=== PATIENT | male | born 1955 | race Caucasian/White ===

== ENCOUNTER → 2018-04-03 08:37 | Outpatient (CLI) | payer OTHER, SELFPAY ==
[2018-04-03 09:16] LABS: Add Manual Diff / Slide Review NO; Basophils Percent Auto 1.1 % (0-2); Eosinophils Percent Auto 3.9 % (2-4); Hematocrit 46.9 % (41-53); Hemoglobin 16.5 g/dL (13.5-17.5); Lymphocytes Percent Auto 55.7 % (25-40); Mean Corpuscular HGB Conc 35.3 % (30-36); Mean Corpuscular Hemoglobin 32.1 PG (26-34); Monocytes Percent Auto 8.7 % (3-14); Neutrophils Absolute Auto 2000 /uL (3000-5900); Neutrophils Percent Auto 30.6 % (50-75); Platelet Count 284 X10^3/uL (150-400); Red Blood Cell Count 5.16 X10^6/uL (4.5-5.9); Red Cell Distribution Width 13.2 % (11.6-14.8); White Blood Cell Count 6.4 X10^3/uL (4.5-11.0)
[2018-04-03 09:19] LABS: Alanine Aminotransferase 39 IU/L (21-72); Albumin 4.7 g/dL (3.5-5.0); Albumin Globulin Ratio 1.6 (1.0-2.8); Alkaline Phosphatase 74 U/L (38-126); Aspartate Aminotransferase 29 IU/L (17-59); BUN Creatinine Ratio 18.8 (6-22); Bilirubin Total 0.7 mg/dL (0.2-1.3); Blood Urea Nitrogen 15 mg/dL (9-20); Calcium 10.1 mg/dL (8.4-10.2); Carbon Dioxide 34 mmol/L (22-32); Chloride 103 mmol/L (98-107); Cholesterol 236 mg/dL (140-199); Estimated Glomerular Filt Rate > 60.0 mL/min (>60); Globulin 2.9 g/dL (1.7-4.1); Glucose 96 mg/dL (80-110); HDL Cholesterol 40 mg/dL (40-60); HEMOLYSIS 21 (0-50); LDL Cholesterol Calculated 162 mg/dL (<100); Potassium 4.9 mmol/L (3.4-5.1); Sodium 147 mmol/L (137-145); Total Protein 7.6 g/dL (6.3-8.2); Triglycerides 170 mg/dL (35-150)
[2018-04-03 09:48] LABS: Prostate Specific Antigen Scrn 0.808 ng/mL (0.1-4.0)
[2018-04-03 10:00] LABS: Thyroid Stimulating Hormone 2.07 uIU/mL (0.47-4.68)
== END ==
PROVIDERS: PCP Family Medicine; Visit Provider Family Medicine
DX: E78.5 Hyperlipidemia, unspecified (principal)
CPT/HCPCS: 36415; 80053; 80061; 84443; 85025; G0103

== ENCOUNTER → 2018-12-29 09:28 | Outpatient (CLI) | payer OTHER, SELFPAY ==
[2018-12-29 10:15] LABS: Add Manual Diff / Slide Review NO; Basophils Absolute Auto 100 /uL (0-100); Basophils Percent Auto 0.6 % (0-2); Eosinophils Absolute Auto 300 /uL (0-450); Eosinophils Percent Auto 2.8 % (2-4); Hematocrit 48.3 % (41-53); Hemoglobin 16.5 g/dL (13.5-17.5); Lymphocytes Absolute Auto 3000 /uL (1100-4500); Lymphocytes Percent Auto 33.2 % (25-40); Mean Corpuscular HGB Conc 34.1 % (30-36); Mean Corpuscular Hemoglobin 31.5 PG (26-34); Mean Corpuscular Volume 92.5 fL (80-100); Monocytes Absolute Auto 1100 /uL (0-900); Monocytes Percent Auto 12.3 % (3-14); Neutrophils Absolute Auto 4600 /uL (1500-7000); Neutrophils Percent Auto 51.1 % (50-75); Platelet Count 254 X10^3/uL (150-400); Red Blood Cell Count 5.23 X10^6/uL (4.5-5.9); Red Cell Distribution Width 12.8 % (11.6-14.8)
[2018-12-29 10:21] LABS: Uric Acid 4.7 mg/dL (3.5-8.5)
== END ==
PROVIDERS: PCP Family Medicine; Visit Provider Hospitalist
DX: M10.9 Gout, unspecified (principal); M79.673 Pain in unspecified foot
CPT/HCPCS: 36415; 84550; 85025

== ENCOUNTER → 2019-02-18 10:48 | Outpatient (CLI) | payer OTHER, SELFPAY ==
[2019-02-18 12:08] LABS: HEMOLYSIS < 15 (0-50)
[2019-02-18 12:09] LABS: Add Manual Diff / Slide Review NO; Basophils Absolute Auto 100 /uL (0-100); Eosinophils Absolute Auto 200 /uL (0-450); Eosinophils Percent Auto 2.4 % (2-4); Lymphocytes Absolute Auto 3300 /uL (1100-4500); Lymphocytes Percent Auto 50.2 % (25-40); Mean Corpuscular HGB Conc 34.7 % (30-36); Mean Corpuscular Hemoglobin 32.1 PG (26-34); Mean Corpuscular Volume 92.3 fL (80-100); Monocytes Absolute Auto 600 /uL (0-900); Monocytes Percent Auto 8.9 % (3-14); Neutrophils Absolute Auto 2500 /uL (1500-7000); Neutrophils Percent Auto 37.5 % (50-75); Platelet Count 263 X10^3/uL (150-400); Red Blood Cell Count 4.99 X10^6/uL (4.5-5.9); Red Cell Distribution Width 13.2 % (11.6-14.8); White Blood Cell Count 6.6 X10^3/uL (4.5-11.0)
[2019-02-18 12:43] LABS: Prostate Specific Antigen Scrn 0.703 ng/mL (0.1-4.0)
[2019-02-18 13:01] LABS: Alanine Aminotransferase 32 IU/L (21-72); Albumin 4.5 g/dL (3.5-5.0); Albumin Globulin Ratio 1.7 (1.0-2.8); Alkaline Phosphatase 76 U/L (38-126); Aspartate Aminotransferase 26 IU/L (17-59); BUN Creatinine Ratio 14.4 (6-22); Bilirubin Total 1.2 mg/dL (0.2-1.3); Blood Urea Nitrogen 13 mg/dL (9-20); Calcium 10.2 mg/dL (8.4-10.2); Carbon Dioxide 27 mmol/L (22-32); Chloride 101 mmol/L (98-107); Cholesterol 234 mg/dL (140-199); Estimated Glomerular Filt Rate > 60.0 mL/min (>60); Globulin 2.7 g/dL (1.7-4.1); Glucose 95 mg/dL (80-110); HDL Cholesterol 43 mg/dL (40-60); LDL Cholesterol Calculated 159 mg/dL (<100); Sodium 139 mmol/L (137-145); Total Protein 7.2 g/dL (6.3-8.2); Triglycerides 160 mg/dL (35-150)
== END ==
PROVIDERS: PCP Family Medicine; Visit Provider Family Medicine
DX: E78.5 Hyperlipidemia, unspecified (principal); Z12.5 Encounter for screening for malignant neoplasm of prostate
CPT/HCPCS: 36415; 80053; 80061; 85025; G0103

== ENCOUNTER → 2019-03-02 10:46 | Outpatient (CLI) | payer OTHER, SELFPAY ==
--- NOTE | 2019-03-02 10:47 | DI.US.S_ITS ---
PROCEDURE: US CAROTID DOPPLER BI INDICATIONS: BRUIT TECHNIQUE: Color and pulse Doppler interrogation was performed of both carotid systems, with image documentation and velocity measurements. COMPARISON: [facility], CT, SOFT TISSUE NECK WITHOUT CONTR, 06/14/2016, 21:39. FINDINGS: Stenosis calculations are based on SRU (Society of Radiologists in Ultrasound) criteria. The flow velocities and the arterial waveforms are normal within both carotid arterial systems. Atherosclerotic plaque is seen on both sides. The estimated degree of internal carotid artery stenosis is less than 50%. Antegrade flow is confirmed within both vertebral arteries. IMPRESSION: No hemodynamically significant stenosis is seen. Atherosclerotic plaque is noted bilaterally. Dictated by: Ace Lindsay M.D. on 03/02/2019 at 11:08 Approved by: Ace Lindsay M.D. on 03/02/2019 at 11:09
== END ==
PROVIDERS: PCP Family Medicine; Visit Provider Family Medicine
DX: R09.89 Other specified symptoms and signs involving the circulatory and respiratory systems (principal); I65.23 Occlusion and stenosis of bilateral carotid arteries
CPT/HCPCS: 93880

== ENCOUNTER 2019-07-30 08:25 | Day surgery (SDC) | payer OTHER, SELFPAY ==
[2019-07-30] VITALS (8 sets, daily range): BP systolic 105–120; BP diastolic 72–84; PULSE 69–83; RESP 9–16; TEMP 36.2–36.4; O2SAT 95–98; BMI 24.0
[2019-07-30] MEDS: SODIUM CHLORIDE 0.9% 1,000 ML 200 ML IV (08:52)
--- NOTE | 2019-07-30 09:22 | PM.HP.1 ---
History of Present Illness History of Present Illness Date Patient Seen: 07/30/19 Time Patient Seen: 09:22 Chief complaint: [id number] Narrative: This is a 63-year-old man who has never had a screening colonoscopy. He denies any personal or family history of colon polyps or colon cancers. He has occasional rectal bleeding which she believes is secondary to constipation. He is on hydrocodone for chronic back pain which seems to be the reason for his constipation. He has chronic headaches and has had 3 back surgeries. He denies any other significant medical history. ROS: Thirteen system review is otherwise negative other than as mentioned below and in HPI. PE: GENERAL: Well groomed and cooperative. Appears stated age. Answers questions promptly and appropriately. Vital signs noted. HENT: Normocephalic, atraumatic. Hearing intact. Oral mucosa is pink and moist. EYES: Conjunctiva pink, sclera white, no periorbital swelling. CARDIOVASCULAR: Regular rate. No pedal edema. RESPIRATORY: Non-tachypneic, breathing comfortably on room air. GASTROINTESTINAL: Abdomen soft and non-distended GENITALURINARY: No flank tenderness. MUSCULOSKELETAL: Equal tone and mass bilaterally. SKIN: Warm, dry, soft, appropriate color for ethnicity. No other lesions, rashes, or wounds. NEURO: Alert and Oriented X 3. No gross sensory deficits, or cognitive issues. PSYCH: Appropriate affect and mood. Patient History Medical History Cervical spine disease (Chronic) Constipation (Acute) Disc herniation (Resolved) Elevated cholesterol (Acute) History of headache (Acute) Lumbar disc disease (Chronic) Surgical History Status post discectomy (12/01/09) Family & Social History Social History: household members spouse,children Tobacco & Substance use: Smoking Status Never smoker alcohol intake current alcohol intake frequency a few times a week Substance Use Type painkillers,prescription drug Meds Home Medications and Allergies Home Medications Medication Instructions Recorded Confirmed Type glucosamine [id number]-Kqvsmolbz 1 tab PO DAILY 02/24/19 07/30/19 History antonio 1,500 mg-400 unit-100 mg tablet ibuprofen 600 mg tablet 600 mg PO Q6HP PRN #0 02/24/19 07/30/19 History brfumggzkjpp-To-pjdt-minerals 18 1 tab PO DAILY tab 02/24/19 07/30/19 History mg-0.4 mg tablet vitamin K2 40 mcg tablet 40 mcg PO DAILY 02/24/19 07/30/19 History hydrocodone 7.5 mg-acetaminophen See Rx Instructions PO .COMPLEX 06/07/19 07/30/19 Rx 325 mg tablet PRN #60 tab diazepam 5 mg tablet See Rx Instructions .ROUTE 06/14/19 07/30/19 Rx .COMPLEX #90 tablet Allergies Allergy/AdvReac Type Severity Reaction Status Date / Time dextromethorphan Allergy Mild RASH Verified 02/24/19 11:30 [From NyQuil] doxylamine [From NyQuil] Allergy Mild RASH Verified 07/30/19 08:53 oxycodone Allergy Mild RASH Verified 07/30/19 08:53 pseudoephedrine [From NyQuil] Allergy Mild RASH Verified 07/30/19 08:53 aspirin AdvReac Severe KIDNEY Verified 07/30/19 08:53 FAILURE Exam Vital Signs (past 8 hours): - 07/30/19 08:55 Temperature 97.1 F L Pulse Rate 80 Respiratory Rate 15 Blood Pressure 120/77 Pulse Oximetry 98 Oxygen Delivery Method Room Air Assessment & Plan Assessment and plan (1) At average risk for colon cancer: Current visit: Yes Status: Acute (2) Encounter for screening colonoscopy: Current visit: Yes Status: Acute Assessment & Plan narrative: Risks and benefits of screening colonoscopy including bleeding, perforation, need for additional procedures were discussed with the patient. He desired to proceed with his colonoscopy. Time Spent With Patient Time with patient: 15-24 minutes Quality VTE Deep Vein Thrombosis/Pulmonary Embolism Present on Admission: No
--- NOTE | 2019-07-30 09:24 | PM.OP.ENDO ---
Operative Date/Time/Diagnoses Date of procedure: 07/30/19 Time of procedure: 09:25 Pre-op diagnosis: average risk for colon cancer; never had a screening colonoscopy Post-op diagnosis: other (Low-grade internal hemorrhoids) Procedure & Clinicians Study performed: Screening colonoscopy Same procedure as scheduled: Yes Indications: Average risk for colon cancer, never had a screening colonoscopy Surgeon: Frances Valerio Procedure Notes SCOAP/Timeout: Performed Procedure in detail: The patient was brought to the room and placed in left lateral decubitus position with all bony prominences padded. A time-out was performed and then the patient was given procedural sedation starting with 4 mg of Versed and 100 mcg of fentanyl. A total of 8 mg of Versed and 200 mcg of fentanyl were given for the entire procedure. Vitals were monitored throughout the procedure and remained stable. Once adequately sedated the procedure was begun. A rectal exam was performed revealing no abnormalities. The colonoscope was then introduced to the rectum and advanced to the cecum in the usual fashion. The cecum was identified by the appendiceal orifice, the mucosal tri-fold, and the ileocecal valve. Patient had a very wide appendiceal orifice, but there was no abnormal fluid coming out of it, or any mucosal abnormality around it. The scope was then retracted while rotating side to side and examining each mucosal fold. No significant abnormalities were seen in the colon. No diverticulosis, or polyps were found. At the conclusion of the procedure retroflexion was performed and small grade 1-2 internal hemorrhoids without stigmata of bleeding were seen. The scope was then withdrawn from the rectum the procedure was concluded. The patient tolerated the procedure well and was transferred to the PACU in stable condition. Scope withdrawal time: 8 Sedation minutes: 23 Findings: internal hemorrhoids (Low-grade) Specimen(s): none sent Complications: none Impression: Normal colon, low-grade internal hemorrhoids Post-procedure Recommendations: Colonscopy in 10 years Follow up: as needed Disposition: PACU
[2019-07-30] MEDS: MIDAZOLAM 5 MG/5 ML VIAL IV (09:56)
[2019-07-30] MEDS: fentaNYL 250 MCG/5 ML INJ IV (09:57)
== END 2019-07-30 11:00 | disposition home or self-care (01) ==
PROVIDERS: PCP Family Medicine; Visit Provider Surgery
PROC: 0DJD8ZZ Inspection of Lower Intestinal Tract, Via Natural or Artificial Opening Endoscopic (ICD-10-PCS; CPT 45378; principal; 2019-07-30 09:30)
DX: Z12.11 Encounter for screening for malignant neoplasm of colon (principal); K64.0 First degree hemorrhoids
CPT/HCPCS: 45378; 99152; J2250; J3010

== ENCOUNTER → 2019-11-05 12:15 | Outpatient (CLI) | payer OTHER, SELFPAY ==
[2019-11-05 13:07] LABS: Add Manual Diff / Slide Review NO; Basophils Absolute Auto 0 /uL (0-100); Basophils Percent Auto 0.5 % (0-2); Eosinophils Absolute Auto 200 /uL (0-450); Eosinophils Percent Auto 2.3 % (2-4); Hematocrit 47.7 % (41-53); Hemoglobin 16.8 g/dL (13.5-17.5); Lymphocytes Absolute Auto 2700 /uL (1100-4500); Lymphocytes Percent Auto 36.2 % (25-40); Mean Corpuscular HGB Conc 35.2 % (30-36); Mean Corpuscular Hemoglobin 32.3 PG (26-34); Mean Corpuscular Volume 91.8 fL (80-100); Monocytes Absolute Auto 700 /uL (0-900); Monocytes Percent Auto 9.5 % (3-14); Neutrophils Absolute Auto 3900 /uL (1500-7000); Neutrophils Percent Auto 51.5 % (50-75); Platelet Count 256 X10^3/uL (150-400); Red Cell Distribution Width 12.9 % (11.6-14.8); White Blood Cell Count 7.6 X10^3/uL (4.5-11.0)
[2019-11-05 13:31] LABS: Alanine Aminotransferase 36 IU/L (<50); Albumin 4.9 g/dL (3.5-5.0); Albumin Globulin Ratio 1.6 (1.0-2.8); Alkaline Phosphatase 82 U/L (38-126); Aspartate Aminotransferase 33 IU/L (17-59); BUN Creatinine Ratio 17.6 (6-22); Bilirubin Total 0.8 mg/dL (0.2-1.3); Blood Urea Nitrogen 15 mg/dL (9-20); Calcium 10.2 mg/dL (8.4-10.2); Carbon Dioxide 30 mmol/L (22-32); Chloride 101 mmol/L (98-107); Estimated Glomerular Filt Rate > 60.0 mL/min (>60); Globulin 3.1 g/dL (1.7-4.1); Glucose 131 mg/dL (80-110); HEMOLYSIS < 15 (0-50); Sodium 140 mmol/L (137-145)
[2019-11-05 13:59] LABS: Thyroid Stimulating Hormone 0.74 uIU/mL (0.47-4.68)
== END ==
PROVIDERS: PCP Family Medicine; Referring Provider Family Medicine; Visit Provider Family Medicine
DX: S09.90XA Unspecified injury of head, initial encounter (principal)
CPT/HCPCS: 36415; 80053; 84443; 85025

== ENCOUNTER → 2019-11-10 16:20 | Outpatient (CLI) | payer OTHER, SELFPAY ==
--- NOTE | 2019-11-10 16:22 | DI.MRI.S_ITS ---
PROCEDURE: MR HEAD/BRAIN WO CON INDICATIONS: Head injury TECHNIQUE: Non-contrast axial T1 spin echo, axial T2 fast spin echo, sagittal and axial FLAIR, coronal T2 fast spin echo, axial gradient echo, axial diffusion and ADC through the brain. COMPARISON: None. FINDINGS: Image quality: Excellent. CSF spaces: Ventricles appear symmetric in size and shape. Basal cisterns are patent. No extra-axial fluid collections. Brain: No intracranial bleeds or mass effects. There is cerebral volume loss for age. There are periventricular and deep white matter chronic small vessel ischemic changes. Brainstem appears normal. Diffusion-weighted images show no acute ischemic insults. No chronic ischemic insults. Normal intravascular flow voids are present. Skull and face: Calvarial bone marrow is normal in signal. Orbits are normal. Sinuses: Sinuses and mastoids are clear. IMPRESSION: Unremarkable MRI for age, without findings of intracranial hemorrhage or brain edema. No findings of acute or subacute infarction can be seen. Dictated by: Ace Lindsay M.D. on 11/10/2019 at 16:17 Approved by: Ace Lindsay M.D. on 11/10/2019 at 16:18
== END ==
PROVIDERS: PCP Family Medicine; Referring Provider Family Medicine; Visit Provider Family Medicine
DX: S09.90XA Unspecified injury of head, initial encounter (principal); X58.XXXA Exposure to other specified factors, initial encounter
CPT/HCPCS: 70551

== ENCOUNTER → 2020-08-04 14:55 | Outpatient (CLI) | payer OTHER, SELFPAY ==
--- NOTE | 2020-08-04 14:58 | DI.RAD.S_ITS ---
PROCEDURE: XR LUMBAR SPINE 2-3V INDICATIONS: low back pain TECHNIQUE: 3 views of the lumbar spine were acquired. COMPARISON: None. FINDINGS: Bones: 5 xvm-nmk-gwwcwdu vertebrae are present. There is normal bony alignment. No vertebral body compression fractures. No suspicious bony lesions. Note is made of a moderate degree of degenerative disc disease at L4-L5, and L5-S1. Facet osteoarthritis becomes progressively more prominent from L3 inferiorly. Soft tissues: Overlying bowel gas pattern is normal. No suspicious soft tissue calcifications. IMPRESSION: Moderate degree of degenerative changes involving the disc spaces and facet joints at L4-5 and L5-S1 with likelihood of significant spinal and foraminal stenosis at these 2 levels. Follow-up by MR scanning may be warranted given current appearance. Dictated by: Jose Martin Lizama M.D. on 08/04/2020 at 15:41 Approved by: Jose Martin Lizama M.D. on 08/04/2020 at 15:42
== END ==
PROVIDERS: PCP Family Medicine; Referring Provider Family Medicine; Visit Provider Family Medicine
DX: M54.5 Low back pain (principal); M51.36 Other intervertebral disc degeneration, lumbar region; M51.37 Other intervertebral disc degeneration, lumbosacral region; M47.816 Spondylosis without myelopathy or radiculopathy, lumbar region; M47.817 Spondylosis without myelopathy or radiculopathy, lumbosacral region
CPT/HCPCS: 72100

== ENCOUNTER → 2022-07-19 10:38 | Outpatient (CLI) | payer OTHER, SELFPAY ==
[2022-07-19 12:43] LABS: Add Manual Diff / Slide Review NO; Basophils Absolute Auto 100 /uL (0-100); Basophils Percent Auto 0.9 % (0-2); Eosinophils Absolute Auto 200 /uL (0-450); Eosinophils Percent Auto 2.6 % (2-4); Hematocrit 47.6 % (41-53); Hemoglobin 16.1 g/dL (13.5-17.5); Lymphocytes Absolute Auto 3100 /uL (1100-4500); Mean Corpuscular HGB Conc 33.8 % (30-36); Mean Corpuscular Hemoglobin 31.5 PG (26-34); Mean Corpuscular Volume 93.3 fL (80-100); Monocytes Absolute Auto 700 /uL (0-900); Monocytes Percent Auto 10.2 % (3-14); Neutrophils Absolute Auto 2700 /uL (1500-7000); Neutrophils Percent Auto 40.3 % (50-75); Platelet Count 257 X10^3/uL (150-400); Red Cell Distribution Width 13.5 % (11.6-14.8); White Blood Cell Count 6.7 X10^3/uL (4.5-11.0)
[2022-07-19 12:58] LABS: Hemoglobin A1C% w Est Avg Glu 5.4 % (4.0-6.0)
[2022-07-19 13:35] LABS: Alanine Aminotransferase 30 IU/L (<50); Alkaline Phosphatase 79 U/L (38-126); Aspartate Aminotransferase 29 IU/L (17-59); Bilirubin Total 1.1 mg/dL (0.2-1.3); Blood Urea Nitrogen 13 mg/dL (9-20); Calcium 9.6 mg/dL (8.4-10.2); Carbon Dioxide 29 mmol/L (22-32); Chloride 104 mmol/L (98-107); Cholesterol 232 mg/dL (140-199); Estimated Glomerular Filt Rate > 60 mL/min (>60); Glucose 91 mg/dL (80-110); HDL Cholesterol 39 mg/dL (40-60); HEMOLYSIS < 15 (0-50); LDL Cholesterol Calculated 162 mg/dL (<100); Sodium 144 mmol/L (137-145); Total Protein 7.9 g/dL (6.3-8.2); Triglycerides 155 mg/dL (35-150)
[2022-07-19 14:03] LABS: TSH w/ Reflex to FT4 0.59 uIU/mL (0.47-4.68)
[2022-07-19 16:36] LABS: Albumin 4.7 g/dL (3.5-5.0); Albumin Globulin Ratio 1.5 (1.0-2.8); Globulin 3.2 g/dL (1.7-4.1)
== END ==
PROVIDERS: PCP Family Medicine; Referring Provider Family Medicine; Visit Provider Family Medicine
DX: E78.2 Mixed hyperlipidemia (principal); M25.569 Pain in unspecified knee; R73.03 Prediabetes; Z98.890 Other specified postprocedural states
CPT/HCPCS: 36415; 80053; 80061; 83036; 84443; 85025

== ENCOUNTER → 2022-08-05 13:17 | Outpatient (CLI) | payer OTHER, SELFPAY ==
--- NOTE | 2022-08-05 13:19 | DI.RAD.S_ITS ---
PROCEDURE: XR ELBOW RT MIN 3V INDICATIONS: R elbow pain, chronic TECHNIQUE: 3 views of the elbow were acquired. COMPARISON: None. FINDINGS: Bones: No fractures or dislocations. No suspicious bony lesions. Soft tissues: No elbow joint effusion. No suspicious soft tissue calcifications. IMPRESSION: No acute osseous abnormalities. If clinical symptoms persist or clinical suspicion for internal derangement is high, MRI is suggested for further evaluation. Dictated by: Evangelista Nye M.D. on 08/05/2022 at 17:22 Approved by: Evangelista Nye M.D. on 08/05/2022 at 17:23
--- NOTE | 2022-08-05 13:19 | DI.RAD.S_ITS ---
PROCEDURE: XR KNEE RT 3V INDICATIONS: R knee pain TECHNIQUE: 3 views of the knee were acquired. COMPARISON: None. FINDINGS: Bones: No fractures or dislocations. No suspicious bony lesions. Mild degenerative joint disease. Soft tissues: Small joint effusion. No suspicious soft tissue calcifications. IMPRESSION: 1. Mild degenerative joint disease. 2. Small knee joint effusion. Dictated by: Evangelista Nye M.D. on 08/05/2022 at 17:08 Approved by: Evangelista Nye M.D. on 08/05/2022 at 17:09
== END ==
PROVIDERS: PCP Family Medicine; Referring Provider Family Medicine; Visit Provider Family Medicine
DX: M17.11 Unilateral primary osteoarthritis, right knee (principal); M25.461 Effusion, right knee; M25.561 Pain in right knee; M25.521 Pain in right elbow
CPT/HCPCS: 73080; 73562

== ENCOUNTER → 2023-01-10 09:27 | Outpatient (CLI) | payer OTHER, SELFPAY ==
[2023-01-10 10:56] LABS: Alanine Aminotransferase 29 IU/L (<50); Albumin 4.4 g/dL (3.5-5.0); Albumin Globulin Ratio 1.6 (1.0-2.8); Alkaline Phosphatase 73 U/L (38-126); Aspartate Aminotransferase 25 IU/L (17-59); BUN Creatinine Ratio 17.1 (6-22); Bilirubin Total 0.9 mg/dL (0.2-1.3); Blood Urea Nitrogen 14 mg/dL (9-20); Calcium 9.9 mg/dL (8.4-10.2); Carbon Dioxide 29 mmol/L (22-32); Chloride 102 mmol/L (98-107); Cholesterol 177 mg/dL (140-199); Estimated Glomerular Filt Rate > 60 mL/min (>60); Globulin 2.8 g/dL (1.7-4.1); Glucose 96 mg/dL (80-110); HDL Cholesterol 45 mg/dL (40-60); HEMOLYSIS < 15 (0-50); LDL Cholesterol Calculated 105 mg/dL (<100); Potassium 4.4 mmol/L (3.4-5.1); Sodium 139 mmol/L (137-145); Total Protein 7.2 g/dL (6.3-8.2); Triglycerides 137 mg/dL (35-150)
== END ==
PROVIDERS: PCP Family Medicine; Referring Provider Family Medicine; Visit Provider Family Medicine
DX: E78.2 Mixed hyperlipidemia (principal)
CPT/HCPCS: 36415; 80053; 80061

== ENCOUNTER → 2024-03-30 11:18 | Outpatient (CLI) | payer MEDICARE, SELFPAY ==
--- NOTE | 2024-03-30 11:19 | DI.RAD.S_ITS ---
PROCEDURE: XR LUMBAR SPINE 2-3V INDICATIONS: eval back pain TECHNIQUE: 3 views of the lumbar spine were acquired. COMPARISON: [facility], CR, XR LUMBAR SPINE 2-3V, 08/04/2020, 15:12. FINDINGS: Lumbar spine curvature and alignment: There is straightening of the normal lordotic curve suggesting muscle spasm. Bones: There are no osseous abnormalities. Disc spaces: Moderate L4-5 and L5-S1 degenerative disc and facet disease noted. Soft tissues: There is 6 small calcifications overlying the inferior pole of the left kidney -all less than 3 mm. There is also a 6 mm calcification overlying superior pole the right kidney. These could potentially represent stones. IMPRESSION: Moderate L4-5 and L5-S1 degenerative disc and facet disease. Potential small nonobstructing stones overlying the kidneys Dictated by: King Pollack M.D. on 03/31/2024 at 10:22 Approved by: King Pollack M.D. on 03/31/2024 at 10:24
== END ==
PROVIDERS: PCP Family Medicine; Referring Provider Family Medicine; Visit Provider Family Medicine
DX: M51.369 Other intervertebral disc degeneration, lumbar region without mention of lumbar back pain or lower extremity pain (principal); M51.379 Other intervertebral disc degeneration, lumbosacral region without mention of lumbar back pain or lower extremity pain; M47.816 Spondylosis without myelopathy or radiculopathy, lumbar region; M47.817 Spondylosis without myelopathy or radiculopathy, lumbosacral region; M54.9 Dorsalgia, unspecified
CPT/HCPCS: 72100

== ENCOUNTER → 2024-09-16 10:10 | Outpatient (CLI) | payer MEDICARE, SELFPAY ==
[2024-09-16 11:06] LABS: Add Manual Diff / Slide Review NO; Basophils Absolute Auto 100 /uL (0-100); Basophils Percent Auto 0.8 % (0-2); Eosinophils Absolute Auto 200 /uL (0-450); Eosinophils Percent Auto 2.5 % (2-4); Hematocrit 47.3 % (41-53); Hemoglobin 16.5 g/dL (13.5-17.5); Lymphocytes Absolute Auto 3400 /uL (1100-4500); Lymphocytes Percent Auto 47.3 % (25-40); Mean Corpuscular Hemoglobin 32.2 PG (26-34); Monocytes Absolute Auto 700 /uL (0-900); Monocytes Percent Auto 9.1 % (3-14); Neutrophils Absolute Auto 2900 /uL (1500-7000); Neutrophils Percent Auto 40.3 % (50-75); Platelet Count 234 X10^3/uL (150-400); Red Blood Cell Count 5.14 X10^6/uL (4.5-5.9); Red Cell Distribution Width 13.5 % (11.6-14.8); White Blood Cell Count 7.2 X10^3/uL (4.5-11.0)
[2024-09-16 11:18] LABS: Hemoglobin A1C% w Est Avg Glu 5.1 % (4.0-6.0)
[2024-09-16 11:46] LABS: Alanine Aminotransferase 66 IU/L (<50); Albumin 4.8 g/dL (3.5-5.0); Albumin Globulin Ratio 1.8 (1.0-2.8); Alkaline Phosphatase 78 U/L (38-126); Aspartate Aminotransferase 47 IU/L (17-59); BUN Creatinine Ratio 14.9 (6-22); Bilirubin Total 1.4 mg/dL (0.2-1.3); Blood Urea Nitrogen 14 mg/dL (9-20); Calcium 10.4 mg/dL (8.4-10.2); Carbon Dioxide 27 mmol/L (22-32); Chloride 105 mmol/L (98-107); Cholesterol 291 mg/dL (140-199); Estimated Glomerular Filt Rate > 60 mL/min (>60); Globulin 2.7 g/dL (1.7-4.1); Glucose 102 mg/dL (80-110); HDL Cholesterol 39 mg/dL (40-60); HEMOLYSIS < 15 (0-50); LDL Cholesterol Calculated 208 mg/dL (<100); Potassium 4.1 mmol/L (3.4-5.1); Sodium 140 mmol/L (137-145); Total Protein 7.5 g/dL (6.3-8.2); Triglycerides 218 mg/dL (35-150)
[2024-09-16 12:17] LABS: Prostate Specific Antigen Scrn 0.699 ng/mL (0.1-4.0)
== END ==
LOC: LAB 10:11
PROVIDERS: PCP Family Medicine; Referring Provider Family Medicine; Visit Provider Family Medicine
DX: R73.03 Prediabetes (principal); E78.2 Mixed hyperlipidemia; Z12.5 Encounter for screening for malignant neoplasm of prostate; Z00.00 Encounter for general adult medical examination without abnormal findings
CPT/HCPCS: 36415; 80053; 80061; 83036; 85025; G0103